=== PATIENT | male | born 1985 | race Caucasian/White ===

== ENCOUNTER 2017-02-06 19:11 | Emergency (ER) | payer MEDICAID, OTHER ==
[~2017-02-06] VITALS: Ht 167.6 cm; Wt 82.0 kg
[2017-02-06 19:24] VITALS: Ht 167.6 cm; Wt 82.0 kg
--- NOTE | 2017-02-06 19:40 | ERA ---
ER Documentation Chief Complaint Date/Time DATE: 02/06/17 TIME: 19:40 Chief Complaint left side back pain x 2 weeks HPI The patient is a 31-year-old male, presenting to the ER because of left lower back pain intermittently for the last 2 weeks after heavy lifting at work. The pain is worse with movement, better at rest, he denies fever, chills, neck pain , chest pain, vomiting, diarrhea, constipation, dysuria, fecal urinary incontinence. He smokes socially, drinks socially, denies illicit drug, denies any history of IV drug abuse. 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 Medications Home Meds Active Scripts Ibuprofen* (Motrin*) 600 Mg Tab, 600 MG PO Q6H Y for PAIN AND OR ELEVATED TEMP, #30 TAB Prov:ANNIE CABA MD 02/06/17 Hydrocodone/Acetaminophen (De Queen 10-325 Tablet) 1 Each Tablet, 1 TAB PO Q6H Y for PAIN, #7 TAB Prov:ANNIE CABA MD 02/06/17 Carisoprodol* (Soma*) 350 Mg Tablet, 350 MG PO TID Y for MUSCLE SPASMS, #15 TAB Prov:ANNIE CABA MD 02/06/17 Allergies Allergies: Coded Allergies: No Known Allergy (Unverified , 02/06/17) Physical Exam Vitals Vital Signs Date Time Temp Pulse Resp B/P Pulse Ox O2 Delivery O2 Flow Rate FiO2 02/06/17 19:24 98.2 78 20 131/60 100 Physical Exam Const: No acute distress. Head: Atraumatic. Eyes: Normal Conjunctiva. ENT: Normal External Ears, Nose and Mouth. Neck: Full range of motion. No meningismus. Resp: Clear to auscultation bilaterally. Cardio: Regular rate and rhythm. Abd: Soft, non distended, normal bowel sounds, mild left lumbar tenderness. No right lower quadrant, right upper quadrant epigastric, rigidity , rebound tenderness Skin: No petechiae or rashes. Back: No midline or flank tenderness. Ext: No cyanosis, or edema. Neur: Awake and alert. No focal deficit Psych: Normal Mood and Affect. Results 24 hrs Current Medications Medications (Trade) Dose Ordered Sig/Svitlana Route PRN Reason Start Time Stop Time Status Last Admin Dose Admin Morphine Sulfate (morphine) 4 mg ONCE ONCE IM 02/06/17 20:00 02/06/17 20:01 02/06/17 19:57 Ketorolac Tromethamine (Toradol) 60 mg ONCE STAT IM 02/06/17 19:48 02/06/17 19:50 DC 02/06/17 19:57 Ondansetron HCl (Zofran Odt) 4 mg ONCE STAT ODT 02/06/17 19:48 02/06/17 19:50 DC 02/06/17 19:56 Procedures/MDM MEDICAL MAKING DECISION: The patient is a 31-year-old male, presenting with acute on chronic low back pain. He was treated with morphine 4 mg IM, Toradol 60 mg IM for pain and Zofran ODT for nausea with good response The differential diagnoses considered include but are not limited to caudal equina syndrome, spinal abscess, DJD, diskitis, lumbar radiculopathy. Departure Diagnosis: Primary Impression: Acute exacerbation of chronic low back pain Condition: Good Comments He was discharged with 7 tablets of De Queen 10 mg, Soma, Motrin I discussed the findings with the patient. I advised the patient to follow-up with the primary physician in about 1-2 days, sooner if needed and return if any concern. The patient's blood pressure was elevated (>120/80) but appears stable without evidence of hypertension emergency or urgency. The patient was counseled about the risks of hypertension and urged to pursue outpatient monitoring and therapy within a week with their primary care physician. ANNIE CABA MD Feb 06, 2017 19:40
[2017-02-06] MEDS ORDERED: ONDANSETRON (ODT) 4 MG TAB ODT STA (19:48)
[2017-02-06] MEDS ORDERED: KETOROLAC 60 MG INJ IM STA (19:48)
[2017-02-06] MEDS ORDERED: CARI350T PO (19:52)
[2017-02-06] MEDS ORDERED: HYDR-902 PO (19:52)
[2017-02-06] MEDS ORDERED: IBUP-1542 PO (19:53)
[2017-02-06] MEDS ORDERED: morphine 10 MG INJ IM ONE (20:00)
== END 2017-02-06 20:38 | disposition home or self-care (01) ==
LOC: FTE 19:11
DX: M54.5 Low back pain (principal); R11.0 Nausea
CPT/HCPCS: 96372; J1885; J2270; Z7502; Z7610